=== PATIENT | female | born 1995 | race Caucasian/White ===

== ENCOUNTER 2017-04-27 11:22 | Emergency (ER) | payer BC ==
[~2017-04-27] VITALS: Ht 167.6 cm; Wt 63.5 kg
[2017-04-27] MEDS ORDERED: LIDOCAINE HCL 2% 20 ML VIAL TP ONE (11:45)
--- NOTE | 2017-04-27 11:48 | NUR ---
mse completed. md freeman placed sutures to left index finger tip, i then cleaned and dresed site and d/c'd pt home. pt ambulated w/o diff/tookm all belongings.
[2017-04-27 11:52] VITALS: BP 140/88
== END 2017-04-27 11:55 | disposition home or self-care (01) ==
LOC: ER 11:30 → EDBD 11:30 → ER 11:55
DX: S61.211A Laceration without foreign body of left index finger without damage to nail, initial encounter (principal); W26.0XXA Contact with knife, initial encounter; Y93.89 Activity, other specified; Y92.9 Unspecified place or not applicable; Y99.9 Unspecified external cause status
CPT/HCPCS: A4663

== ENCOUNTER 2017-05-06 12:21 | Emergency (ER) | payer BC ==
[~2017-05-06] VITALS: Ht 167.6 cm; Wt 63.5 kg
--- NOTE | 2017-05-06 12:52 | NUR ---
DR SILVEIRA REMOVED SUTURES, I THEN D/C'D PT HOME, ACI GIVEN. PT AMBULAted w/o diff/took all belongings.
[2017-05-06 12:53] VITALS: BP 128/78
== END 2017-05-06 12:57 | disposition home or self-care (01) ==
LOC: ER 12:25
DX: S61.211D Laceration without foreign body of left index finger without damage to nail, subsequent encounter (principal); X58.XXXD Exposure to other specified factors, subsequent encounter; Y92.9 Unspecified place or not applicable; Y99.9 Unspecified external cause status
CPT/HCPCS: A4663